=== PATIENT | male | born 1985 | race Caucasian/White ===

== ENCOUNTER 2017-03-26 08:37 | Emergency (ER) | payer SELFPAY ==
--- NOTE | 2017-03-26 10:09 | UC ---
Back Pain HPI - HPI Summary HPI Summary: Pt presents with left lower and mid back pain s/p fall yesterday. 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 He took some ibuprofen with mild relief. This morning he woke and the pain was worse than yesterday. 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 Denies recent illness, fever, cough, numbness, tingling, or loss of bowel/ bladder function. - History of Current Complaint Chief Complaint: UCBackPain Stated Complaint: back injury Time Seen by Provider: 03/26/17 10:08 Hx Obtained From: Patient Onset/Duration: Sudden Onset Timing: Constant Severity Initially: Moderate Severity Currently: Moderate Pain Intensity: 8 Pain Scale Used: 0-10 Numeric Character: Aching, Spasmodic, Stiffness Aggravating Factor(s): Movement Alleviating Factor(s): Rest, Position - Allergies/Home Medications Allergies/Adverse Reactions: Allergies Allergy/AdvReac Type Severity Reaction Status Date / Time MS Amoxicillin [Amoxicillin] Allergy Rash Verified 01/17/12 13:11 MS Penicillins [Penicillins] Allergy Hives Verified 01/17/12 13:11 PMH/Surg Hx/FS Hx/Imm Hx Previously Healthy: Yes Other History Of: Negative For: Anticoagulant Therapy - Surgical History Surgical History: Yes Surgery Procedure, Year, and Place: hernia- infant - Family History Known Family History: Positive: Unknown - Social History Occupation: Employed Full-time Lives: With Family Alcohol Use: None Substance Use Type: Marijuana Smoking Status (MU): Heavy Every Day Tobacco Smoker Type: Cigarettes Review of Systems Constitutional: Negative Skin: Negative Respiratory: Negative Cardiovascular: Negative Gastrointestinal: Negative Neurovascular: Negative Musculoskeletal: Other: - Left mid back pain Neurological: Negative Psychological: Negative All Other Systems Reviewed And Are Negative: Yes Physical Exam Triage Information Reviewed: Yes Appearance: Well-Appearing, No Pain Distress, Well-Nourished Vital Signs: Initial Vital Signs Temp 98.1 F 03/26/17 08:45 Pulse 60 03/26/17 08:45 Resp 16 03/26/17 08:45 BP 148/94 03/26/17 08:45 Pulse Ox 99 03/26/17 08:45 Vital Signs Reviewed: Yes Neck: Positive: Supple, No Lymphadenopathy, Other: - FROM. NTTP Respiratory: Positive: Chest non-tender, Lungs clear, Normal breath sounds, No respiratory distress, No accessory muscle use Cardiovascular: Positive: RRR, No Murmur, Pulses Normal Musculoskeletal: Positive: Strength Intact - B/L UEs and LEs, ROM Intact - B/L UEs and LEs, No Edema, Other: - Mild TTP over left paraspinal muscles Neurological: Positive: Alert, Other: - Sensations intact UEs and LEs Psychological: Positive: Age Appropriate Behavior Skin: Negative: rashes, significant lesion(s) Back Pain Course/Dx - Course Course Of Treatment: Ribs: IMPRESSION: LIMITED EXAM, NO EVIDENCE FOR FRACTURE. Thoracolumbar: IMPRESSION: NO EVIDENCE FOR FRACTURE. Suspect muscle strain. Toradol IM given in clinic today. Ibuprofen prn. Flexeril at bedtime. - Differential Dx/Diagnosis Provider Diagnoses: Mid back strain Discharge - Discharge Plan Condition: Stable Disposition: HOME Prescriptions: Cyclobenzaprine TAB* [Flexeril 10 MG TAB*] 10 mg PO BEDTIME PRN #10 tab PRN Reason: Pain Patient Education Materials: Low Back Strain (ED), Lower Back Exercises (ED) Referrals: No Primary Care Phys,NOPCP [Primary Care Provider] - Additional Instructions: If you develop a fever, shortness of breath, chest pain, new or worsening symptoms - please call your PCP or go to the ED. Your blood pressure was high at todays visit. Please see your primary provider within 4 weeks for recheck and re-evaluation.
--- NOTE | 2017-03-26 11:15 | RAD ---
INDICATION: Left rib injury. COMPARISON: Comparison is made with a prior chest x-ray study from January 17, 2012. TECHNIQUE: 4 views of the left ribs and dual-energy PA views of the chest were obtained. FINDINGS: Evaluation of the lower left ribs is limited due to overlying bowel gas in the stomach and colon. No fracture is seen. The heart is within normal limits in size. The lungs are clear. There is no evidence for pneumothorax or pleural effusion. IMPRESSION: LIMITED EXAM, NO EVIDENCE FOR FRACTURE. IF THE PATIENT'S SYMPTOMS PERSIST, RECOMMEND FOLLOW-UP IMAGING.
--- NOTE | 2017-03-26 11:16 | RAD ---
INDICATION: Trauma, back pain. COMPARISON: There are no prior studies available for comparison. TECHNIQUE: AP and lateral films of the spine were obtained centered at the dorsal lumbar junction. FINDINGS: There is a mild dorsal lumbar scoliosis convex toward the right in the dorsal region and toward the left in the lumbar region. No fracture is seen. Disc spaces appear maintained. IMPRESSION: NO EVIDENCE FOR FRACTURE.
[2017-03-26] MEDS ORDERED: Ketorolac INJ* 30 MG/ML 1 ML VIAL IM ONE (11:25)
[2017-03-26 11:40] VITALS: BP 127/83
== END 2017-03-26 11:42 | disposition home or self-care (01) ==
LOC: UCEAST 08:37
DX: S29.012A Strain of muscle and tendon of back wall of thorax, initial encounter (principal); W18.30XA Fall on same level, unspecified, initial encounter; Y93.89 Activity, other specified; Y92.009 Unspecified place in unspecified non-institutional (private) residence as the place of occurrence of the external cause; Z88.0 Allergy status to penicillin; F17.210 Nicotine dependence, cigarettes, uncomplicated
CPT/HCPCS: 72080; 96372; 99202; G0463; J1885